=== PATIENT | male | born 1960 | race Hispanic/Latino ===

== ENCOUNTER 2018-12-25 08:12 | Day surgery (SDC) | payer OTHER ==
--- NOTE | 2018-12-24 19:16 | HP ---
HISTORY OF PRESENT ILLNESS: This is a 58-year-old old [place] male, who comes for a colonoscopy for colon cancer screening. The patient has no specific disease. He has no family history of colon cancer. ALLERGIES: NONE. MEDICAL ILLNESSES: 1. Hypertension. 2. Hyperlipidemia. 3. Benign prostatic hypertrophy. SOCIAL HISTORY: The patient does not smoke or drink alcohol. PHYSICAL EXAMINATION: VITAL SIGNS: Pulse is 70 and blood pressure 130/70. EYES: Conjunctivae clear. NECK: Supple. No adenitis or thyromegaly noted. CARDIOVASCULAR SYSTEM: First and second heart sounds heard. LUNGS: Clear to auscultation. ABDOMEN: Soft. No organomegaly. No tenderness. No masses. ADMITTING DIAGNOSIS: Colon cancer screening. PLAN: Colonoscopy. Job ID: [id number]
--- NOTE | 2018-12-25 11:30 | OP ---
DATE OF PROCEDURE: 12/25/2018 PREOPERATIVE DIAGNOSIS: Colon cancer screening. POSTOPERATIVE DIAGNOSES: 1. Diffuse diverticular disease from sigmoid colon to transverse colon. 2. Sessile polyp, ascending colon, status post snare cautery. 3. Polypoid-appearing ileocecal wall biopsy. 4. Hemorrhoids. OPERATIVE PROCEDURE: Colonoscopy with polypectomy and biopsy. DESCRIPTION OF PROCEDURE: The patient was placed on his left lateral position and was given sedation by Anesthesia Department. A rectal exam was done before scope was advanced into the rectum. No lesions felt on rectal exam. A [employer]ax video colonoscope was introduced into the rectum and advanced all the way into the cecum. The patient had small amount of fecal residue which was washed out.. The appendiceal orifice and cecum, no pathology. The ileocecal wall appeared polypoid and biopsied. A sessile ascending colon polyp removed by snare cautery with good hemostasis. The hepatic flexure, no pathology seen. The transverse colon, splenic flexure, descending colon, sigmoid colon showed scattered diverticula. Retroflexion of the scope in the rectum showed hemorrhoids. DISCHARGE PLAN: This is a 58-year-old male came for colonoscopy for colon cancer screening. He underwent colonoscopy with polypectomy, biopsy. DISCHARGE RECOMMENDATION: 1. The patient is advised to call me if he developed abdominal pain or hematochezia. 2. In the absence of any other symptoms, he will come back to me in 2 weeks. Job ID: [id number] [id number]
[2018-12-25] MEDS ORDERED: PROPOFOL 200 MG/20 ML VIAL ONE (15:25)
== END 2018-12-25 11:38 | disposition home or self-care (01) ==
LOC: SDC 08:12
PROVIDERS: ATTEND Internal Medicine Gastroenterology
PROC: 0DBH8ZX Excision of Cecum, Via Natural or Artificial Opening Endoscopic, Diagnostic (ICD-10-PCS; principal; 2018-12-25)
PROC: 0DBK8ZZ Excision of Ascending Colon, Via Natural or Artificial Opening Endoscopic (ICD-10-PCS; principal; 2018-12-25)
DX: Z12.11 Encounter for screening for malignant neoplasm of colon (principal); K57.30 Diverticulosis of large intestine without perforation or abscess without bleeding; K63.5 Polyp of colon; K64.9 Unspecified hemorrhoids; K52.89 Other specified noninfective gastroenteritis and colitis; I10 Essential (primary) hypertension; E78.5 Hyperlipidemia, unspecified; N40.0 Benign prostatic hyperplasia without lower urinary tract symptoms
CPT/HCPCS: 88305; J2704

== ENCOUNTER 2024-07-15 07:46 | Outpatient (CLI) | payer BC | END 2024-07-15 07:47 | disposition home or self-care (01) | LOC: ULT 07:46 | PROVIDERS: ATTEND Family Medicine | DX: R10.11 Right upper quadrant pain (principal); R14.0 Abdominal distension (gaseous); K76.0 Fatty (change of) liver, not elsewhere classified | CPT/HCPCS: 76705 ==